=== PATIENT | female | born 1955 | race Caucasian/White ===

== ENCOUNTER 2024-03-07 16:10 | Emergency (ER) | payer MEDICARE, OTHER ==
[~2024-03-07] VITALS: Ht 165.1 cm; Wt 99.8 kg
[2024-03-07 17:10] LABS: BASOPHILS # (AUTO) 0.1 K/UL (0.0-0.2); BASOPHILS % (AUTO) 1.1 % (0.0-2.0); EOSINOPHILS # (AUTO) 0.2 K/uL (0.0-0.7); EOSINOPHILS % (AUTO) 3.2 % (0.0-7.0); HEMATOCRIT 35.3 % (31.2-41.9); HEMOGLOBIN 11.1 g/dL (10.9-14.3); LYMPHOCYTES # (AUTO) 1.4 K/uL (0.8-4.8); LYMPHOCYTES % (AUTO) 21.2 % (20.5-51.5); MEAN CORPUSCULAR HEMOGLOBIN 27.1 uug (24.7-32.8); MEAN CORPUSCULAR HGB CONC 32 g/dL (32.3-35.6); MEAN CORPUSCULAR VOLUME 86.2 fL (75.5-95.3); MONOCYTES # (AUTO) 0.5 K/uL (0.1-1.30); MONOCYTES % (AUTO) 8.2 % (0.0-11.0); NEUTROPHILS # (AUTO) 4.3 K/uL (1.8-8.9); NEUTROPHILS % (AUTO) 66.3 % (38.5-71.5); PLATELET COUNT (AUTO) 208 K/uL (179-408); RED CELL DISTRIBUTION WIDTH 16.4 % (12.3-17.7); WHITE BLOOD COUNT (AUTO) 6.5 K/uL (3.8-11.8)
[2024-03-07 17:11] LABS: DIFFERENTIAL COMMENT 1
[2024-03-07 17:21] LABS: CALCIUM 8.1 mg/dL (8.5-10.1); CARBON DIOXIDE 32 mmol/L (21-32); CHLORIDE 102 mmol/L (98-107); CREATININE 0.8 mg/dL (0.6-1.3); GLUCOSE 129 mg/dL (74-106); POTASSIUM 3.9 mmol/L (3.5-5.1); SODIUM SERUM 142 mmol/L (136-145); UREA NITROGEN, BLOOD 13 mg/dL (7-18)
[2024-03-07] MEDS ORDERED: TRAZ-257 PO (17:31)
[2024-03-07] MEDS ORDERED: BUSP10TA3 PO (17:31)
[2024-03-07] MEDS ORDERED: OZEMPIC (17:31)
[2024-03-07] MEDS ORDERED: PANT40TA49 PO (17:31)
[2024-03-07] MEDS ORDERED: FURO20TA4 PO (17:31)
[2024-03-07] MEDS ORDERED: ESCI20TA44 (17:31)
[2024-03-07] MEDS ORDERED: DAPA10TA PO (17:31)
[2024-03-07] MEDS ORDERED: LEVO125T8 PO (17:31)
[2024-03-07] MEDS ORDERED: PRED5DRO16 EACHEYE (17:31)
[2024-03-07] MEDS ORDERED: PREG25CA19 PO (17:31)
[2024-03-07] MEDS ORDERED: METF-886 PO (17:31)
[2024-03-07] MEDS ORDERED: ACET325T53 PO (17:31)
[2024-03-07 17:33] LABS: IRON, SERUM 37 ug/dL (50-175)
[2024-03-07 17:34] LABS: ALANINE AMINOTRANSFERASE 24 U/L (14-59); ALBUMIN 2.9 g/dL (3.4-5.0); ALKALINE PHOSPHATASE 79 U/L (50-136); ASPARTATE AMINOTRANSFERASE 16 U/L (15-37); BILIRUBIN,DIRECT 0.1 mg/dL (0.0-0.2); BILIRUBIN,TOTAL 0.5 mg/dL (0.2-1.0); NT-PRO BNP 585 pg/mL (0-125); TOTAL PROTEIN, SERUM 6.4 g/dL (6.4-8.2)
[2024-03-07] MEDS ORDERED: FUROSEMIDE 40 MG/4 ML VIAL ONE (18:15)
[2024-03-07] MEDS: FUROSEMIDE 40 MG/4 ML VIAL IV ONE (18:16)
[2024-03-07] MEDS ORDERED: POTA25TA7 PO (19:11)
[2024-03-07] MEDS ORDERED: FURO-152 PO (19:11)
[2024-03-07 21:32] VITALS: BP 110/59; TEMP 97.7; O2SAT 95
== END 2024-03-07 20:45 | disposition home or self-care (01) ==
LOC: ER 16:15
DX: R60.0 Localized edema (principal); I50.9 Heart failure, unspecified; D50.9 Iron deficiency anemia, unspecified; E03.9 Hypothyroidism, unspecified; E11.9 Type 2 diabetes mellitus without complications; Z79.84 Long term (current) use of oral hypoglycemic drugs; Z79.52 Long term (current) use of systemic steroids; Z79.899 Other long term (current) drug therapy
CPT/HCPCS: 36415; 71045; 83550; 83605; 83735; 84443; 84484; 85025; 93005; A4606; A4663; J1940

== ENCOUNTER 2024-04-17 19:28 | Emergency (ER) | payer MEDICARE, OTHER ==
[~2024-04-17] VITALS: Ht 165.1 cm; Wt 99.8 kg
[~2024-04-17 19:28] MED LIST: ACET325T53 PO; BUSP10TA3 PO; DAPA10TA PO; ESCI20TA44; FURO-152 PO; FURO20TA4 PO; LEVO125T8 PO; METF-886 PO; OZEMPIC; PANT40TA49 PO; POTA25TA7 PO; PRED5DRO16 EACHEYE; PREG25CA19 PO; TRAZ-257 PO
[2024-04-17] MEDS ORDERED: ASPIRIN 81 MG TAB.CHEW ONE (19:57)
[2024-04-17] MEDS ORDERED: NITROGLYCERIN OINT 1 GM PACKET TP ONE (19:57)
[2024-04-17] MEDS: ASPIRIN 81 MG TAB.CHEW PO ONE (20:16)
[2024-04-17] MEDS: NITROGLYCERIN OINT 1 GM PACKET TP ONE (20:18)
[2024-04-17 20:19] LABS: BASOPHILS # (AUTO) 0.1 K/UL (0.0-0.2); BASOPHILS % (AUTO) 1.2 % (0.0-2.0); EOSINOPHILS # (AUTO) 0.3 K/uL (0.0-0.7); EOSINOPHILS % (AUTO) 6.5 % (0.0-7.0); HEMATOCRIT 35.9 % (31.2-41.9); HEMOGLOBIN 11.6 g/dL (10.9-14.3); LYMPHOCYTES # (AUTO) 1.5 K/uL (0.8-4.8); LYMPHOCYTES % (AUTO) 27.8 % (20.5-51.5); MEAN CORPUSCULAR HEMOGLOBIN 27.1 uug (24.7-32.8); MEAN CORPUSCULAR HGB CONC 32 g/dL (32.3-35.6); MEAN CORPUSCULAR VOLUME 84.2 fL (75.5-95.3); MONOCYTES # (AUTO) 0.5 K/uL (0.1-1.30); MONOCYTES % (AUTO) 9.5 % (0.0-11.0); NEUTROPHILS # (AUTO) 2.9 K/uL (1.8-8.9); PLATELET COUNT (AUTO) 222 K/uL (179-408); RED BLOOD CELL COUNT(AUTO) 4.27 MIL/uL (3.63-4.92); RED CELL DISTRIBUTION WIDTH 16.8 % (12.3-17.7); WHITE BLOOD COUNT (AUTO) 5.2 K/uL (3.8-11.8)
[2024-04-17 20:21] LABS: DIFFERENTIAL COMMENT 1
[2024-04-17 20:27] LABS: CALCIUM 8.6 mg/dL (8.5-10.1); CARBON DIOXIDE 32 mmol/L (21-32); CHLORIDE 103 mmol/L (98-107); CREATININE 0.8 mg/dL (0.6-1.3); GLUCOSE 100 mg/dL (74-106); POTASSIUM 4.1 mmol/L (3.5-5.1); SODIUM SERUM 141 mmol/L (136-145); UREA NITROGEN, BLOOD 12 mg/dL (7-18)
[2024-04-17 20:40] LABS: ALANINE AMINOTRANSFERASE 20 U/L (14-59); ALBUMIN 3.2 g/dL (3.4-5.0); ALKALINE PHOSPHATASE 65 U/L (50-136); ASPARTATE AMINOTRANSFERASE 16 U/L (15-37); BILIRUBIN,DIRECT 0.1 mg/dL (0.0-0.2); BILIRUBIN,TOTAL 0.4 mg/dL (0.2-1.0); NT-PRO BNP 165 pg/mL (0-125); TOTAL PROTEIN, SERUM 6.9 g/dL (6.4-8.2)
[2024-04-18 00:41] VITALS: BP 124/72; TEMP 98; O2SAT 97
== END 2024-04-18 00:42 | disposition home or self-care (01) ==
LOC: ER 19:29
DX: R60.0 Localized edema (principal); R51.9 Headache, unspecified; G89.29 Other chronic pain; Z79.4 Long term (current) use of insulin; Z79.1 Long term (current) use of non-steroidal anti-inflammatories (NSAID); Z20.822 Contact with and (suspected) exposure to COVID-19; Z79.899 Other long term (current) drug therapy
CPT/HCPCS: 36415; 71045; 84484; 85025; 93005; A4606; A4663